=== PATIENT | female | born 1945 | race Caucasian/White ===

== ENCOUNTER → 2016-09-20 | Outpatient (CLI) | payer OTHER | LOC: BMCIMAGING 09:35 | PROVIDERS: ATTEND Podiatrist Foot & Ankle Surgery | DX: Z98.890 Other specified postprocedural states (principal); M19.071 Primary osteoarthritis, right ankle and foot; M25.872 Other specified joint disorders, left ankle and foot; Z87.81 Personal history of (healed) traumatic fracture ==

== ENCOUNTER → 2016-09-26 | Outpatient (CLI) | payer OTHER | LOC: BMCIMAGING 13:45 | PROVIDERS: ATTEND Podiatrist Foot & Ankle Surgery | DX: Z09 Encounter for follow-up examination after completed treatment for conditions other than malignant neoplasm (principal); Z98.890 Other specified postprocedural states; M79.89 Other specified soft tissue disorders ==

== ENCOUNTER → 2016-10-06 | Outpatient (CLI) | payer OTHER | LOC: BMCIMAGING 10:04 | PROVIDERS: ATTEND Podiatrist Foot & Ankle Surgery | DX: Z09 Encounter for follow-up examination after completed treatment for conditions other than malignant neoplasm (principal) ==

== ENCOUNTER → 2016-10-27 | Outpatient (CLI) | payer OTHER | LOC: BMCIMAGING 13:46 | PROVIDERS: ATTEND Podiatrist Foot & Ankle Surgery | DX: Z09 Encounter for follow-up examination after completed treatment for conditions other than malignant neoplasm (principal); Z98.890 Other specified postprocedural states ==

== ENCOUNTER → 2016-12-02 | Outpatient (CLI) | payer OTHER | LOC: GIMAGING 20:35 | PROVIDERS: ATTEND Nurse Practitioner | DX: R05 Cough (principal); R91.8 Other nonspecific abnormal finding of lung field | CPT/HCPCS: 71020-PO ==

== ENCOUNTER → 2016-12-16 | Outpatient (CLI) | payer OTHER | LOC: FIMAGING 08:40 | PROVIDERS: ATTEND Podiatrist Foot & Ankle Surgery | DX: M81.0 Age-related osteoporosis without current pathological fracture (principal) ==

== ENCOUNTER → 2016-12-20 | Outpatient (CLI) | payer OTHER | LOC: BMCIMAGING 09:51 | PROVIDERS: ATTEND Podiatrist Foot & Ankle Surgery | DX: Z47.89 Encounter for other orthopedic aftercare (principal); Z98.1 Arthrodesis status ==

== ENCOUNTER → 2017-05-31 | Outpatient (CLI) | payer OTHER | LOC: GIMAGING 10:12 | PROVIDERS: ATTEND Registered Nurse | DX: R05 Cough (principal); R50.9 Fever, unspecified | CPT/HCPCS: 71020-PO ==

== ENCOUNTER → 2017-07-13 | Outpatient (CLI) | payer OTHER | LOC: BHFA 14:00 | PROVIDERS: ATTEND Internal Medicine Cardiovascular Disease | DX: R05 Cough (principal) ==